=== PATIENT | female | born 1975 | race Hispanic/Latino ===

== ENCOUNTER 2019-06-05 21:24 | Emergency (ER) | payer SELFPAY ==
[2019-06-05 22:13] LABS: Hematocrit 28.6 % (36.0-45.0); Lymphocytes % 39.2 % (15.3-44.8); MPV 8.9 fL (7.6-11.3); Monocytes % 13.3 % (3.3-12.3); RBC Red Blood Cell Count 4.33 M/uL (3.86-4.86)
[2019-06-05 22:16] LABS: Protime INR 0.91
[2019-06-05 22:26] LABS: ALT/SGPT 28 U/L (12-78); AST/SGOT 19 U/L (15-37); Albumin 3.6 g/dL (3.4-5.0); Alkaline Phosphatase 97 U/L (45-117); BUN Blood Urea Nitrogen 16 mg/dL (7-18); Bicarbonate 28 mmol/L (21-32); Bilirubin Direct < 0.1 mg/dL (0-0.2); Bilirubin Total 0.2 mg/dL (0.2-1.0); Glucose Level 77 mg/dL (74-106); NT PRO-BNP 23 pg/mL (<125); Potassium 4.2 mmol/L (3.5-5.1); Protein, Total 7.6 g/dL (6.4-8.2); Sodium Level 142 mmol/L (136-145); Troponin (Emerg Dept Use Only) < 0.02 ng/mL (0.0-0.045)
[2019-06-05 23:30] LABS: Blood Morphology Comment NOTED (NOT SEEN); Platelet Estimate ADEQ; Urine White Blood Cell Casts OK
[2019-06-05 23:31] LABS: Anisocytosis 1+; Hypochromasia 2+
--- NOTE | 2019-06-05 23:48 | ER ---
Nurse's Notes [facility] Name: Brenda Stephenson Age: 43 yrs Sex: Female : 1975 Arrival Date: 06/05/2019 Time: 21:25 Bed 5 Private MD: Diagnosis: Presentation: 06/05 21:27 Presenting complaint: Patient states: I have been having pain in my chest when I la1 breathe and move. I bruised my ribs a couple weeks ago. Transition of care: patient was not received from another setting of care. Onset of symptoms was June 05, 2019. Risk Assessment: Do you want to hurt yourself or someone else? Patient reports no desire to harm self or others. Initial Sepsis Screen: Does the patient meet any 2 criteria? No. Patient's initial sepsis screen is negative. Does the patient have a suspected source of infection? No. Patient's initial sepsis screen is negative. Care prior to arrival: None. 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 - Social history:: Smoking status: Patient uses tobacco products, smokes one-half pack cigarettes per day. - Ebola Screening: : No symptoms or risks identified at this time. Screenin:49 Abuse screen: Denies threats or abuse. Denies injuries from another. Nutritional ak1 screening: No deficits noted. Tuberculosis screening: No symptoms or risk factors identified. Fall Risk None identified. Assessment: 21:45 General: Appears in no apparent distress. Behavior is calm, cooperative. Pain: ak1 Complains of pain in anterior aspect of left upper chest and left arm Pain does not radiate. Pain began 2-3 days ago. Neuro: Level of Consciousness is awake, alert, obeys commands, Oriented to person, place, time, situation, Music Journalist are equal bilaterally Moves all extremities. Gait is steady, Speech is normal, Facial symmetry appears normal. Cardiovascular: Reports chest pain, Denies lightheadedness, nausea, shortness of breath, vomiting, Patient's skin is warm and dry. Rhythm is regular. 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 pt stated she has been seen at [facility] for same s/s last week Airway is patent Respiratory effort is even, unlabored, Breath sounds are clear bilaterally. GI: No signs and/or symptoms were reported involving the gastrointestinal system. : No signs and/or symptoms were reported regarding the genitourinary system. EENT: No signs and/or symptoms were reported regarding the EENT system. Derm: No signs and/or symptoms reported regarding the dermatologic system. Musculoskeletal: Reports numbness in left arm numbness to left arm for 3 days. pt stated pain between shoulder blades. pt has been staying upstairs with her boyfriend at stated since she was here she should have the numbness "checked out". 23:45 Reassessment: Patient appears in no apparent distress at this time. pt leaves room, ak1 walking around ER, refusing to stay in ER5 on cardiac monitoring. pt using nurses station phones to call upstairs. pt removed IV. pt found to have eloped, no longer in ER5 with IV on bed. Vital Signs: 21:29 Resp 16; Temp 97.6; Pulse Ox 98% on R/A; Weight 81.65 kg; Height 5 ft. 1 in. (154.94 la1 cm); 21:30 BP 96 / 66; la1 21:52 BP 114 / 42; Pulse 66; Resp 20; Temp 97.6; Pulse Ox 98% on R/A; ak1 21:29 Body Mass Index 34.01 (81.65 kg, 154.94 cm) la1 ED Course: 21:25 Patient arrived in ED. ds1 21:27 Arm band placed on left wrist. la1 21:28 Triage completed. la1 21:30 Hoa Garcia, RN is Primary Nurse. ak1 21:32 Haja Maldonado MD is Attending Physician. pkl 21:44 Initial lab(s) drawn, by dc, sent to lab. EKG done, by ED staff, reviewed by Haja jamison MD. Inserted saline lock: 22 gauge in right antecubital area, using aseptic technique. Blood collected. Patient maintains SpO2 saturation greater than 95% on room air. 21:53 Patient has correct armband on for positive identification. Placed in gown. Bed in low ak1 position. Call light in reach. Side rails up X2. drug room operator on. Pulse ox on. NIBP on. 22:39 XRAY Chest (1 view) In Process Unspecified. EDMS 22:58 Notified ED physician of a critical lab result(s). 532 d- dimer. Administered Medications: No medications were administered Outcome: 23:47 Patient left the ED. ak1 Signatures: Dispatcher [employer] EDMS Soraya Fonseca, RN RN Haja Polanco MD MD pkl Sanford, Demi ds1 Vega Mckeon RN RN la1 Hoa Garcia RN RN ak1
--- NOTE | 2019-06-05 23:49 | EDPHYS ---
Physician Documentation [facility] Name: Brenda Stephenson Age: 43 yrs Sex: Female : 1975 Arrival Date: 06/05/2019 Time: 21:25 Bed 5 Private MD: ED Physician Haja Maldonado HPI: 06/05 21:49 This 43 yrs old Female presents to ER via Ambulatory with complaints of Chest pkl Pain. 21:49 The patient or guardian reports chest pain that is located primarily in the substernal pkl area. Onset: 3 day(s) ago. The pain radiates to the left arm. The chest pain is described as dull. 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 - Social history:: Smoking status: Patient uses tobacco products, smokes one-half pack cigarettes per day. - Ebola Screening: : No symptoms or risks identified at this time. ROS: 21:49 Eyes: Negative for injury, pain, redness, and discharge, ENT: Negative for injury, pkl pain, and discharge, Neck: Negative for injury, pain, and swelling. 21:49 Cardiovascular: Positive for chest pain. 21:49 Respiratory: Negative for cough, shortness of breath. 21:49 Abdomen/GI: Negative for abdominal pain, nausea, vomiting, and diarrhea. 21:49 Back: Negative for acute changes. 21:49 : Negative for urinary symptoms. 21:49 MS/extremity: Negative for acute changes. 21:49 Skin: Negative for rash. 21:49 Neuro: Negative for altered mental status. Exam: 21:49 Head/Face: Normocephalic, atraumatic. Eyes: Pupils equal round and reactive to light, pkl extra-ocular motions intact. Lids and lashes normal. Conjunctiva and sclera are non-icteric and not injected. Cornea within normal limits. Periorbital areas with no swelling, redness, or edema. ENT: Nares patent. No nasal discharge, no septal abnormalities noted. Tympanic membranes are normal and external auditory canals are clear. Oropharynx with no redness, swelling, or masses, exudates, or evidence of obstruction, uvula midline. Mucous membranes moist. Neck: Trachea midline, no thyromegaly or masses palpated, and no cervical lymphadenopathy. Supple, full range of motion without nuchal rigidity, or vertebral point tenderness. No Meningismus. Chest/axilla: Normal chest wall appearance and motion. Nontender with no deformity. No lesions are appreciated. Cardiovascular: Regular rate and rhythm with a normal S1 and S2. No gallops, murmurs, or rubs. Normal PMI, no JVD. No pulse deficits. Respiratory: Lungs have equal breath sounds bilaterally, clear to auscultation and percussion. No rales, rhonchi or wheezes noted. No increased work of breathing, no retractions or nasal flaring. Abdomen/GI: Soft, non-tender, with normal bowel sounds. No distension or tympany. No guarding or rebound. No evidence of tenderness throughout. Back: No spinal tenderness. No costovertebral tenderness. Full range of motion. Skin: Warm, dry with normal turgor. Normal color with no rashes, no lesions, and no evidence of cellulitis. MS/ Extremity: Pulses equal, no cyanosis. Neurovascular intact. Full, normal range of motion. Neuro: Awake and alert, GCS 15, oriented to person, place, time, and situation. Cranial nerves II-XII grossly intact. Motor strength 5/5 in all extremities. Sensory grossly intact. Cerebellar exam normal. Normal gait. Vital Signs: 21:29 Resp 16; Temp 97.6; Pulse Ox 98% on R/A; Weight 81.65 kg; Height 5 ft. 1 in. (154.94 la1 cm); 21:30 BP 96 / 66; la1 21:52 BP 114 / 42; Pulse 66; Resp 20; Temp 97.6; Pulse Ox 98% on R/A; ak1 21:29 Body Mass Index 34.01 (81.65 kg, 154.94 cm) la1 MDM: 21:33 Patient medically screened. pkl 23:50 Data reviewed: vital signs, nurses notes, lab test result(s), EKG, radiologic studies, pkl plain films. 06/05 21:47 Order name: Basic Metabolic Panel pkl 06/05 21:47 Order name: CBC with Diff pkl 06/05 21:47 Order name: LFT's pkl 06/05 21:47 Order name: Magnesium; Complete Time: 23:33 pkl 06/05 21:47 Order name: NT PRO-BNP; Complete Time: 23:33 pkl 06/05 21:47 Order name: PT-INR; Complete Time: 23:33 pkl 06/05 21:47 Order name: Troponin (emerg Dept Use Only); Complete Time: 23:33 pkl 06/05 21:47 Order name: XRAY Chest (1 view) pkl 06/05 21:47 Order name: D-Dimer; Complete Time: 23:33 pkl 06/05 21:48 Order name: Basic Metabolic Panel; Complete Time: 23:33 EDMS 06/05 21:48 Order name: CBC with Automated Diff; Complete Time: 23:33 EDMS 06/05 21:48 Order name: Liver (Hepatic) Function; Complete Time: 23:33 EDMS 06/05 22:16 Order name: CBC Smear Scan; Complete Time: 23:33 EDMS 06/05 21:47 Order name: EKG; Complete Time: 21:49 pkl 06/05 21:47 Order name: Cardiac monitoring; Complete Time: 21:50 pkl 06/05 21:47 Order name: EKG - Nurse/Tech; Complete Time: 21:50 pkl 06/05 21:47 Order name: IV Saline Lock; Complete Time: 21:51 pkl 06/05 21:47 Order name: Labs collected and sent; Complete Time: 21:51 pkl 06/05 21:47 Order name: O2 Per Protocol; Complete Time: 21:51 pkl 06/05 21:47 Order name: O2 Sat Monitoring; Complete Time: 21:51 pkl Administered Medications: No medications were administered Disposition: 06/05/19 23:47 Patient left the facility after being seen by provider. - Patient left due to unknown. Signatures: Dispatcher [employer] Haja Tam MD MD pkl Attema, Lee RN RN la1 Hoa Garcia RN RN ak1
--- NOTE | 2019-06-06 08:29 | RAD REPORT ---
EXAM DESCRIPTION: RAD - Chest Single View - 06/05/2019 10:38 pm CLINICAL HISTORY: Chest pain COMPARISON: October 2015 TECHNIQUE: AP portable chest image was obtained 2214 hours . FINDINGS: Lung volumes are low. No peripheral mass or consolidation. Heart and vasculature are susi l. No measurable pleural effusion and no pneumothorax. No acute bony abnormality seen. No acute aorti c findings suspected. IMPRESSION: Limited shallow inspiration portable chest film showing no acute finding.
--- NOTE | 2019-06-06 08:43 | EKG ---
Test Date: 2019-06-05 Test Time: 21:37:33 Automobile Rental Clerk: AER MEASUREMENT RESULTS: Intervals: Rate: 63 OH: 124 QRSD: 84 QT: 418 QTc: 427 [place]: P: 31 OH: 124 QRS: 69 T: 61 INTERPRETIVE STATEMENTS: Normal sinus rhythm Normal ECG Compared to ECG 03/17/2016 20:45:20 No significant changes Electronically Signed On 06-06-19 08:41:16 CDT by Seven Schilling
== END 2019-06-05 23:47 | disposition left against medical advice (07) ==
LOC: ER 21:24
DX: R07.9 Chest pain, unspecified (principal); F17.210 Nicotine dependence, cigarettes, uncomplicated; Z53.9 Procedure and treatment not carried out, unspecified reason
CPT/HCPCS: 36415; 71045; 80048; 80076; 83735; 83880; 84484; 85025; 85379; 85610; 93005; 99285

== ENCOUNTER 2019-06-09 00:10 | Emergency (ER) | payer SELFPAY ==
--- NOTE | 2019-06-09 04:24 | EDPHYS ---
Physician Documentation [facility] Name: Brenda Stephenson Age: 43 yrs Sex: Female : 1975 Arrival Date: 06/09/2019 Time: 00:13 Bed 24 Private MD: ED Physician Hitesh Mills HPI: 06/09 00:20 This 43 yrs old Female presents to ER via Unassigned with complaints of chest rn pain. 00:20 The patient or guardian reports chest pain that is located primarily in the substernal rn area. Onset: 4 day(s) ago. The pain does not radiate. Associated signs and symptoms: The patient has no apparent associated signs or symptoms, Pertinent negatives: abdominal pain, dizziness, headache, lightheadedness, nausea, near syncope, palpitations, recent travel, shortness of breath, syncope, vomiting. The chest pain is described as aching, sharp. Modifying factors: The symptoms are alleviated by nothing. the symptoms are aggravated by movement, palpation of area, twisting torso. Severity of pain: At its worst the pain was moderate. The patient has experienced similar episodes in the past. Reports seen a few days ago for chest pain, has been constant for atleast 4 days, no fever, + smoker, worse with palpation and movement, no trauma, left AMA prior to CT PE performed last visit due to elevated d-dimer. Still having pain.. 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 - Family history:: not pertinent. - Social history:: Smoking status: Patient uses tobacco products, smokes one-half pack cigarettes per day. - Ebola Screening: : No symptoms or risks identified at this time. - Hospitalizations: : No recent hospitalization is reported. ROS: 00:20 Constitutional: Negative for fever, chills, and weight loss, Eyes: Negative for injury, rn pain, redness, and discharge, Neck: Negative for injury, pain, and swelling, Cardiovascular: Negative for palpitations, and edema, Respiratory: Negative for shortness of breath, cough, wheezing Abdomen/GI: Negative for abdominal pain, nausea, vomiting, diarrhea, and constipation, Back: Negative for injury and pain, MS/Extremity: Negative for injury and deformity, Skin: Negative for injury, rash, and discoloration, Neuro: Negative for headache, weakness, numbness, tingling, and seizure. Exam: 00:20 Constitutional: This is a well developed, well nourished patient who is awake, alert, rn and in no acute distress. Head/Face: Normocephalic, atraumatic. Eyes: Pupils equal round and reactive to light, extra-ocular motions intact. Lids and lashes normal. Conjunctiva and sclera are non-icteric and not injected. Cornea within normal limits. Periorbital areas with no swelling, redness, or edema. ENT: MMM Cardiovascular: Regular rate and rhythm, No pulse deficits. Respiratory: Lungs have equal breath sounds bilaterally, clear to auscultation, No increased work of breathing, no retractions or nasal flaring. Abdomen/GI: soft, non-tender Skin: Warm, dry with normal turgor. Normal color with no rashes, no lesions, and no evidence of cellulitis. MS/ Extremity: Pulses equal, no cyanosis. Neurovascular intact. Full, normal range of motion. Equal circumference. Neuro: Awake and alert, GCS 15, oriented to person, place, time, and situation. Cranial nerves II-XII grossly intact. Motor strength 5/5 in all extremities. Sensory grossly intact. Cerebellar exam normal. Normal gait. Vital Signs: 00:28 BP 90 / 62; Pulse 72; Resp 16; Temp 97.8(O); Pulse Ox 100% on R/A; ae4 01:00 BP 97 / 51; Pulse 73; Resp 16; Pulse Ox 100% on R/A; rv 02:00 BP 102 / 52; Pulse 65; Resp 18; Temp 98(O); Pulse Ox 100% on R/A; rv 02:37 BP 104 / 59; Pulse 66; Resp 16; Temp 98; Pulse Ox 99% on R/A; rv MDM: 00:16 Patient medically screened. rn 02:37 Differential diagnosis: acute pericarditis, anxiety, coronary artery disease chest wall rn pain, congestive heart failure costochondritis, pleurisy, pneumothorax. Data reviewed: vital signs, nurses notes, lab test result(s), EKG, radiologic studies. Counseling: I had a detailed discussion with the patient and/or guardian regarding: the historical points, exam findings, and any diagnostic results supporting the discharge/admit diagnosis, the presence of at least one elevated blood pressure reading (>120/80) during this emergency department visit, lab results, radiology results, the need for outpatient follow up, to return to the emergency department if symptoms worsen or persist or if there are any questions or concerns that arise at home. Response to treatment: the patient's symptoms have markedly improved after treatment, the patient's condition has returned to base line, the patient is now symptom free. ED course: No acute findings on cxr or labs/ecg, will dc home. States worse with palpation and movement, recommended smoking cessation and pcp f/u.. 06/09 00:18 Order name: IV Start; Complete Time: 02:15 rn 06/09 00:18 Order name: EKG - Nurse/Tech; Complete Time: 01:13 rn Administered Medications: 01:00 Drug: NS 0.9% 1000 ml Route: IV; Rate: 1000 ml; Site: right hand; rv 02:28 Follow up: IV Status: Completed infusion; IV Intake: 1000ml rv Disposition: 06/09/19 02:39 Discharged to Home. Impression: Chest pain, unspecified. - Condition is Stable. - Discharge Instructions: Nonspecific Chest Pain. - Medication Reconciliation Form, Thank You Letter, Antibiotic Education, Prescription Opioid Use form. - Follow up: Private Physician; When: As needed; Reason: Recheck today's complaints, Re-evaluation by your physician. - Problem is an ongoing problem. - Symptoms have improved. Signatures: Hitesh Mills MD MD rn Vicente, Ronaldo, RN RN Corby Howard RN RN ae4 Corrections: (The following items were deleted from the chart) 02:40 02:37 ED course: Spoke at length with patient, possible chest pain equivalent vs heart rn failure vs valvular problem, recommendd admission for echo and stress, patient declines, has appt today with pcp at 3 pm, and understands he needs further testing. Filled up 2 urinals here after lasix, told him to get back on his 2nd BP med, and needs outpt stress/echo. . rn 02:40 02:39 06/09/2019 02:39 Discharged to Home. Impression: Dyspnea, unspecified; Edema, rn unspecified. Condition is Stable. Forms are Medication Reconciliation Form, Thank You Letter, Antibiotic Education, Prescription Opioid Use. Follow up: Private Physician; When: As needed; Reason: Recheck today's complaints, Re-evaluation by your physician. Problem is an ongoing problem. Symptoms have improved. rn 03:04 02:40 06/09/2019 02:39 Discharged to Home. Impression: Chest pain, unspecified. rv Condition is Stable. Discharge Instructions: Edema, Shortness of Breath, Peripheral Edema. Forms are Medication Reconciliation Form, Thank You Letter, Antibiotic Education, Prescription Opioid Use. Follow up: Private Physician; When: As needed; Reason: Recheck today's complaints, Re-evaluation by your physician. Problem is an ongoing problem. Symptoms have improved. rn
--- NOTE | 2019-06-09 04:25 | ER ---
Nurse's Notes [facility] Name: Brenda Stephenson Age: 43 yrs Sex: Female : 1975 Arrival Date: 06/09/2019 Time: 00:13 Bed 24 Private MD: Diagnosis: Chest pain, unspecified Presentation: 06/09 00:29 Presenting complaint: EMS states: EMS states patient has "crushing chest pain", pain ae4 increases upon palpation and movement. Transition of care: patient was not received from another setting of care. Onset of symptoms was June 09, 2019. Risk Assessment: Do you want to hurt yourself or someone else? Patient reports no desire to harm self or others. Initial Sepsis Screen: Does the patient meet any 2 criteria? No. Patient's initial sepsis screen is negative. Does the patient have a suspected source of infection? No. Patient's initial sepsis screen is negative. Care prior to arrival: Medication(s) given: ASA, x 1, 3254 mg. IV initiated. 20 GA, in the left antecubital area, Glucose check: 105. 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 - Family history:: not pertinent. - Social history:: Smoking status: Patient uses tobacco products, smokes one-half pack cigarettes per day. - Ebola Screening: : No symptoms or risks identified at this time. - Hospitalizations: : No recent hospitalization is reported. Screenin:36 Abuse screen: Denies threats or abuse. Nutritional screening: No deficits noted. ae4 Tuberculosis screening: No symptoms or risk factors identified. Fall Risk None identified. No fall in past 12 months (0 pts). No secondary diagnosis (0 pts). IV access (20 points). Ambulatory Aid- None/Bed Rest/Nurse Assist (0 pts). Gait- Normal/Bed Rest/Wheelchair (0 pts) Mental Status- Oriented to own ability (0 pts). Assessment: 01:51 General: Appears in no apparent distress. comfortable, Behavior is calm, cooperative. rv Pain: Complains of pain in chest Pain does not radiate. Pain began suddenly. Neuro: Level of Consciousness is awake, alert, obeys commands, Oriented to person, place, time, situation. Cardiovascular: Patient's skin is warm and dry. Rhythm is regular. Respiratory: Airway is patent. GI: No signs and/or symptoms were reported involving the gastrointestinal system. : No signs and/or symptoms were reported regarding the genitourinary system. EENT: No signs and/or symptoms were reported regarding the EENT system. Derm: Skin is intact. 02:13 Reassessment: Patient appears in no apparent distress at this time. No changes from rv previously documented assessment. Patient and/or family updated on plan of care and expected duration. Pain level reassessed. Patient is alert, oriented x 3, equal unlabored respirations, skin warm/dry/pink. Vital Signs: 00:28 BP 90 / 62; Pulse 72; Resp 16; Temp 97.8(O); Pulse Ox 100% on R/A; ae4 01:00 BP 97 / 51; Pulse 73; Resp 16; Pulse Ox 100% on R/A; rv 02:00 BP 102 / 52; Pulse 65; Resp 18; Temp 98(O); Pulse Ox 100% on R/A; rv 02:37 BP 104 / 59; Pulse 66; Resp 16; Temp 98; Pulse Ox 99% on R/A; rv ED Course: 00:13 Patient arrived in ED. ds1 00:16 Hitesh Mills MD is Attending Physician. rn 00:25 Corby Naranjo RN is Primary Nurse. ae4 00:31 Triage completed. ae4 00:37 Arm band placed on right wrist. ae4 00:37 Maintain EMS IV. Dressing intact. Good blood return noted. Site clean \\T\\ dry. Gauge \\T\\ ae 4 site: 20 Left AC.. Patient maintains SpO2 saturation greater than 95% on room air. 00:48 Placed in gown. Bed in low position. Call light in reach. Side rails up X 1. Adult w/ ae4 patient. study specialist on. Pulse ox on. NIBP on. 02:38 No provider procedures requiring assistance completed. IV discontinued, intact, rv bleeding controlled, No redness/swelling at site. Pressure dressing applied. Administered Medications: 01:00 Drug: NS 0.9% 1000 ml Route: IV; Rate: 1000 ml; Site: right hand; rv 02:28 Follow up: IV Status: Completed infusion; IV Intake: 1000ml rv Intake: 02:28 IV: 1000ml; Total: 1000ml. rv Outcome: 02:38 Discharged to home ambulatory. rv 02:38 Condition: good 02:38 Discharge instructions given to patient, family, Instructed on discharge instructions, follow up and referral plans. Demonstrated understanding of instructions, follow-up care. 02:39 Discharge ordered by . rn 03:04 Patient left the ED. rv Signatures: Marilyn Swenson ds1 Hitesh Mills MD MD rn Vicente, Ronaldo, RN RN rv Corby Naranjo RN RN ae4
[2019-06-09 04:51] LABS: BUN Blood Urea Nitrogen 23 mg/dL (7-18); Bicarbonate 29 mmol/L (21-32); Glucose Level 75 mg/dL (74-106); Potassium 3.9 mmol/L (3.5-5.1); Sodium Level 142 mmol/L (136-145); Troponin (Emerg Dept Use Only) < 0.02 ng/mL (0.0-0.045)
[2019-06-09 04:52] LABS: Basophils % 1.5 % (0-1.3); Eosinophils % 2.6 % (0-4.4); Hematocrit 27.3 % (36.0-45.0); Lymphocytes % 33.5 % (15.3-44.8); MPV 9.2 fL (7.6-11.3); Monocytes % 12.3 % (3.3-12.3)
[2019-06-09 04:53] LABS: Anisocytosis 1+; Blood Morphology Comment NOTED (NOT SEEN); Hypochromasia 1+; Platelet Estimate ADEQ; Urine White Blood Cell Casts OK
--- NOTE | 2019-06-09 08:18 | RAD REPORT ---
EXAM DESCRIPTION: RAD - Chest Single View - 06/09/2019 4:13 am CLINICAL HISTORY: CHEST PAIN Chest pain. COMPARISON: Chest Single View dated 06/05/2019; CHEST PA AND LAT 2 VIEW dated 10/20/2015; CHEST PA AND LAT 2 VIEW dated 08/24/2015; CHEST PA AND LAT 2 VIEW dated 05/30/2013; Chest For Pe Angio dated 019 FINDINGS: Portable technique limits examination quality. The lungs are grossly clear. The heart is upper limit of normal in size. No displaced fractures. IMPRESSION: No acute intrathoracic process suspected.
--- NOTE | 2019-06-09 09:55 | EKG ---
Test Date: 2019-06-09 Test Time: 00:48:42 Relationship Assoc: VICKEYT MEASUREMENT RESULTS: Intervals: Rate: 71 PA: 136 QRSD: 92 QT: 408 QTc: 443 [place]: P: 54 PA: 136 QRS: 54 T: 47 INTERPRETIVE STATEMENTS: Normal sinus rhythm Normal ECG Compared to ECG 06/05/2019 21:37:33 No significant changes Electronically Signed On 06-09-19 09:54:20 CDT by Jasmeet Gutierrez
--- NOTE | 2019-06-09 10:55 | RAD REPORT ---
EXAM DESCRIPTION: CTA Chest With Intravenous Contrast CLINICAL HISTORY: The patient is 43 years old and is Female; chest pain, rule out PE TECHNIQUE: Axial computed tomography images of the chest with intravenous contrast during the arteri al phase of enhancement. Sagittal and coronal reformatted images were created and reviewed. This CT exam was performed using one or more of the following dose reduction techniques: automated expos ure control, adjustment of the mA and/or kV according to patient size, and/or use of iterative recons truction technique. Oblique reformatted images were created and reviewed. COMPARISON: Chest radiograph of the same day. FINDINGS: PULMONARY ARTERIES: Unremarkable. No pulmonary embolism. AORTA: No acute findings. No thoracic aortic aneurysm. LUNGS: Dependent subsegmental atelectasis. Atelectasis in the lingula. No focal consolidation, ple ural effusion or pneumothorax. PLEURAL SPACE: See above. HEART: The heart is normal in size. No significant pericardial effusion. No evidence of RV dysfunction. THYROID: Visualized thyroid is within normal limits. BONES/JOINTS: Straightening of thoracic kyphosis. No acute fracture. No dislocation. SOFT TISSUES: Unremarkable. LYMPH NODES: Nonspecific nonenlarged mediastinal lymph nodes. IMPRESSION: 1. No pulmonary embolism. 2. No acute intrathoracic abnormality. Electronically signed by: Jose G Zacarias DO 06/09/2019 2:38 AM CDT Due to temporary technical issues with the PACS/Fluency reporting system, reports are being signed by the in house radiologist as a courtesy to ensure prompt reporting. The interpreting radiologist is f ully responsible for the content of the report.
== END 2019-06-09 03:04 | disposition home or self-care (01) ==
LOC: ER 00:10
DX: R07.9 Chest pain, unspecified (principal); F17.210 Nicotine dependence, cigarettes, uncomplicated
CPT/HCPCS: 36415; 71045; 71275; 80048; 84484; 85025; 93005; 96360; 99285; Q9967

== ENCOUNTER 2019-07-09 19:43 | Emergency (ER) | payer SELFPAY ==
[2019-07-09 20:43] LABS: Absolute Lymphocytes (CBC) 1.6 K/uL (0.7-4.9); Basophils % 0.8 % (0-1.3); Hematocrit 28.1 % (36.0-45.0); Lymphocytes % 27.7 % (15.3-44.8); MPV 9.1 fL (7.6-11.3); RBC Red Blood Cell Count 4.28 M/uL (3.86-4.86)
[2019-07-09] MEDS ORDERED: IBUPROFEN 400 MG TAB ONE (20:52)
[2019-07-09 21:18] LABS: BUN Blood Urea Nitrogen 13 mg/dL (7-18); Bicarbonate 26 mmol/L (21-32); Glucose Level 92 mg/dL (74-106); Sodium Level 142 mmol/L (136-145); Troponin (Emerg Dept Use Only) < 0.02 ng/mL (0.0-0.045)
--- NOTE | 2019-07-09 21:25 | ER ---
Nurse's Notes [facility] Name: Brenda Stephenson Age: 43 yrs Sex: Female : 1975 Arrival Date: 07/09/2019 Time: 19:45 Bed 5 Private MD: Diagnosis: Chest pain, unspecified;Panic disorder [episodic paroxysmal anxiety] without agoraphobia Presentation: 07/09 19:47 Presenting complaint: EMS states: pt was at [facility] when she became short of ak1 breath with chest pain to right chest wall. pt stated she has had same s/s for over a month and been seen at [facility] and [facility] "many times" pt resp even and unlabored at this time. EMS reported normal sinus rhythm on 12 lead in route. pt stated pain was relieved with 324 aspirin given in route. Officer at bedside, pt refusing lab work or further testing, Dr. Maldonado notified. Transition of care: patient was not received from another setting of care. Onset of symptoms is unknown. Risk Assessment: Do you want to hurt yourself or someone else? Patient reports no desire to harm self or others. Initial Sepsis Screen: Does the patient meet any 2 criteria? No. Patient's initial sepsis screen is negative. Does the patient have a suspected source of infection? No. Patient's initial sepsis screen is negative. Care prior to arrival: None. 19:47 Method Of Arrival: EMS: [facility] ak1 19:47 Acuity: JASON 3 ak1 Triage Assessment: 19:51 General: Appears in no apparent distress. Behavior is calm, cooperative, appropriate ak1 for age. Pain: Denies pain. EENT: No signs and/or symptoms were reported regarding the EENT system. Neuro: Level of Consciousness is awake, alert, obeys commands, Oriented to person, place, time, situation, Associate Software Development Engineer are equal bilaterally Moves all extremities. Gait is steady, Speech is normal, Facial symmetry appears normal. Cardiovascular: Denies chest pain, Heart tones S1 S2 Capillary refill < 3 seconds Patient's skin is warm and dry. Cardiovascular: Parent/caregiver reports patient has had EMS reported pt had right side chest pain while in usp cell at [facility]. EMS stated pt chest pain resolved after 324mg aspirin given DIRECTOR OF EVENT SALES. Respiratory: Reports shortness of breath at rest since "over a month" Airway is patent Trachea midline Respiratory effort is even, unlabored, Respiratory pattern is regular, symmetrical, Breath sounds are clear bilaterally. Onset: The symptoms/episode began/occurred at an unknown time. the patient has mild shortness of breath. GI: No signs and/or symptoms were reported involving the gastrointestinal system. : No signs and/or symptoms were reported regarding the genitourinary system. Derm: No signs and/or symptoms reported regarding the dermatologic system. Musculoskeletal: No signs and/or symptoms reported regarding the musculoskeletal system. Historical: - Allergies: 19:51 No Known Allergies; ak1 - Home Meds: 19:51 None [Active]; ak1 - PMHx: 19:51 Anemia; Kidney stones; ak1 - PSHx: 19:51 None; ak1 - Immunization history:: Adult Immunizations unknown. - Social history:: Smoking status: unknown. - Ebola Screening: : No symptoms or risks identified at this time. Screenin:53 Abuse screen: Denies threats or abuse. Denies injuries from another. Nutritional ak1 screening: No deficits noted. Tuberculosis screening: No symptoms or risk factors identified. Fall Risk None identified. Assessment: 19:53 Reassessment: Patient appears in no apparent distress at this time. No changes from ak1 previously documented assessment. Patient and/or family updated on plan of care and expected duration. Pain level reassessed. pt removed all monitoring equipment. pt refusing any further care at this time, Dr. Maldonado notified. 20:15 Reassessment: pt refused EKG, ERP notified. pt stated she would allow a lab draw, [facility] phlebotomy paged. 20:34 Reassessment: pt allowed phlebotomy to draw labs. pt and officer informed of wait for ak1 lab results. 21:35 Reassessment: Patient appears in no apparent distress at this time. No changes from ak1 previously documented assessment. Patient and/or family updated on plan of care and expected duration. Pain level reassessed. Patient is alert, oriented x 3, equal unlabored respirations, skin warm/dry/pink. Patient denies pain at this time. Patient states feeling better. Officer waiting for patrol car for transportation. . 21:36 Cardiovascular: Rhythm is regular. ak1 Vital Signs: 19:51 BP 195 / 169; Pulse 75; Resp 18; Temp 97.6(TE); Pulse Ox 97% on R/A; Weight 90.72 kg ak1 (R); Height 5 ft. 1 in. (154.94 cm) (R); Pain 0/10; 20:58 BP 119 / 69; jd3 19:51 Body Mass Index 37.79 (90.72 kg, 154.94 cm) ak1 ED Course: 19:45 Patient arrived in ED. bb 19:47 Hoa Garcia RN is Primary Nurse. ak1 19:50 Fredy Hensley PA is PHCP. jr8 19:50 Haaj Maldonado MD is Attending Physician. jr8 19:50 Triage completed. ak1 19:51 Arm band placed on Patient placed in an exam room, on a stretcher, on telephone interviewer, ak1 on pulse oximetry, Patient notified of wait time. 19:53 Patient has correct armband on for positive identification. Bed in low position. Call ak1 light in reach. Side rails up X2. [place] officer at bedside. 21:35 No provider procedures requiring assistance completed. Patient did not have IV access ak1 during this emergency room visit. Administered Medications: 20:58 Drug: Ibuprofen 800 mg Route: PO; jd3 21:12 Follow up: Response: No adverse reaction; Pain is decreased ak1 21:34 Drug: Potassium Chloride 40 mEq Route: PO; ak1 21:34 Follow up: Response: No adverse reaction ak1 Outcome: 21:24 Discharge ordered by . jr8 21:36 Discharged to Law Enforcement ak1 21:36 Condition: stable 21:36 Discharge instructions given to patient, Instructed on discharge instructions, follow up and referral plans. Demonstrated understanding of instructions, follow-up care. 21:46 Patient left the ED. ak1 Signatures: Cande Villalba RN RN bb Fredy Hensley PA PA jr8 Hoa Garcia RN RN ak1 Hunter Marrero RN RN jd3
--- NOTE | 2019-07-09 21:25 | EDPHYS ---
Physician Documentation [facility] Name: Brenda Stephenson Age: 43 yrs Sex: Female : 1975 Arrival Date: 07/09/2019 Time: 19:45 Bed 5 Private MD: ED Physician Haja Maldonado HPI: 07/09 20:21 This 43 yrs old Female presents to ER via EMS with complaints of Shortness Of jr8 Breath. 20:21 The patient has shortness of breath at rest. Onset: The symptoms/episode began/occurred jr8 acutely, today. Duration: The symptoms are continuous, but are markedly better than the original presentation. The patient's shortness of breath has no apparent modifying factors. Associated signs and symptoms: Pertinent positives: chest pain. Severity of symptoms: At their worst the symptoms were moderate in the emergency department the symptoms have resolved. The patient has experienced similar episodes in the past, a few times. The patient has not recently seen a physician. Patient currently in custody of police. Started to have chest pain and shortness of breath at assisted. By the time patient arrived to ED symptoms had resolved. Patient stated that she thinks she just had a bad panic attack. By request of police. Would like us to medically clear her . Historical: - Allergies: 19:51 No Known Allergies; ak1 - Home Meds: 19:51 None [Active]; ak1 - PMHx: 19:51 Anemia; Kidney stones; ak1 - PSHx: 19:51 None; ak1 - Immunization history:: Adult Immunizations unknown. - Social history:: Smoking status: unknown. - Ebola Screening: : No symptoms or risks identified at this time. ROS: 20:21 Eyes: Negative for injury, pain, redness, and discharge, ENT: Negative for injury, jr8 pain, and discharge, Neck: Negative for injury, pain, and swelling, Abdomen/GI: Negative for abdominal pain, nausea, vomiting, diarrhea, and constipation, Back: Negative for injury and pain, MS/Extremity: Negative for injury and deformity, Skin: Negative for injury, rash, and discoloration, Neuro: Negative for headache, weakness, numbness, tingling, and seizure. 20:21 Cardiovascular: Positive for chest pain, Negative for edema, orthopnea, palpitations, paroxysmal nocturnal dyspnea. 20:21 Respiratory: Positive for shortness of breath. Exam: 20:21 Eyes: Pupils equal round and reactive to light, extra-ocular motions intact. Lids and jr8 lashes normal. Conjunctiva and sclera are non-icteric and not injected. Cornea within normal limits. Periorbital areas with no swelling, redness, or edema. ENT: Nares patent. No nasal discharge, no septal abnormalities noted. Tympanic membranes are normal and external auditory canals are clear. Oropharynx with no redness, swelling, or masses, exudates, or evidence of obstruction, uvula midline. Mucous membranes moist. Neck: Trachea midline, no thyromegaly or masses palpated, and no cervical lymphadenopathy. Supple, full range of motion without nuchal rigidity, or vertebral point tenderness. No Meningismus. Cardiovascular: Regular rate and rhythm with a normal S1 and S2. No gallops, murmurs, or rubs. Normal PMI, no JVD. No pulse deficits. Respiratory: Lungs have equal breath sounds bilaterally, clear to auscultation and percussion. No rales, rhonchi or wheezes noted. No increased work of breathing, no retractions or nasal flaring. Abdomen/GI: Soft, non-tender, with normal bowel sounds. No distension or tympany. No guarding or rebound. No evidence of tenderness throughout. Back: No spinal tenderness. No costovertebral tenderness. Full range of motion. Skin: Warm, dry with normal turgor. Normal color with no rashes, no lesions, and no evidence of cellulitis. MS/ Extremity: Pulses equal, no cyanosis. Neurovascular intact. Full, normal range of motion. Neuro: Awake and alert, GCS 15, oriented to person, place, time, and situation. Cranial nerves II-XII grossly intact. Motor strength 5/5 in all extremities. Sensory grossly intact. Cerebellar exam normal. Normal gait. Vital Signs: 19:51 BP 195 / 169; Pulse 75; Resp 18; Temp 97.6(TE); Pulse Ox 97% on R/A; Weight 90.72 kg ak1 (R); Height 5 ft. 1 in. (154.94 cm) (R); Pain 0/10; 20:58 BP 119 / 69; jd3 19:51 Body Mass Index 37.79 (90.72 kg, 154.94 cm) ak1 MDM: 19:50 Patient medically screened. jr8 20:21 Data reviewed: vital signs, nurses notes, lab test result(s). Data interpreted: Pulse jr8 oximetry: on room air is 97 %. Interpretation: normal. Counseling: I had a detailed discussion with the patient and/or guardian regarding: the historical points, exam findings, and any diagnostic results supporting the discharge/admit diagnosis, lab results, the need for outpatient follow up, a family practitioner, to return to the emergency department if symptoms worsen or persist or if there are any questions or concerns that arise at home. ED course: Patient initially would not allow us to exam her. Finally was able to talk her into us looking at her to insure she is not having cardiac event. Patient allowed us to do blood work but currently refusing EKG. 07/09 20:07 Order name: CBC with Diff; Complete Time: 21:36 8 07/09 20:07 Order name: Basic Metabolic Panel; Complete Time: 21:23 [facility] 07/09 20:07 Order name: Troponin (emerg Dept Use Only); Complete Time: 21:23 [facility] 07/09 21:30 Order name: CBC Smear Scan; Complete Time: 21:36 EDMS Administered Medications: 20:58 Drug: Ibuprofen 800 mg Route: PO; jd3 21:12 Follow up: Response: No adverse reaction; Pain is decreased ak1 21:34 Drug: Potassium Chloride 40 mEq Route: PO; ak1 21:34 Follow up: Response: No adverse reaction ak1 Disposition: 07/10 01:10 Co-signature as Attending Physician, Haja Maldonado MD. joel Disposition: 07/09/19 21:24 Discharged to Home. Impression: Chest pain, unspecified, Panic disorder [episodic paroxysmal anxiety] without agoraphobia. - Condition is Stable. - Discharge Instructions: Panic Attacks, Nonspecific Chest Pain. - Medication Reconciliation Form, Thank You Letter, Antibiotic Education, Prescription Opioid Use form. - Follow up: Private Physician; When: 2 - 3 days; Reason: Recheck today's complaints, Continuance of care, Re-evaluation by your physician. - Problem is new. - Symptoms have improved. Signatures: Dispatcher [employer] EDMS Haja Maldonado MD MD pkFredy Liz PA PA jr8 Hoa Garcia RN RN ak1 Hunter Marrero RN RN jd3 Corrections: (The following items were deleted from the chart) 07/09 20:16 20:08 EKG - Nurse/Tech ordered. jr8 ak1 21:29 20:46 Manual Differential ordered. EDMS EDMS 21:46 21:24 07/09/2019 21:24 Discharged to Home. Impression: Chest pain, unspecified; Panic ak1 disorder [episodic paroxysmal anxiety] without agoraphobia. Condition is Stable. Forms are Medication Reconciliation Form, Thank You Letter, Antibiotic Education, Prescription Opioid Use. Follow up: Private Physician; When: 2 - 3 days; Reason: Recheck today's complaints, Continuance of care, Re-evaluation by your physician. Problem is new. Symptoms have improved. jr8
[2019-07-09 21:27] LABS: Blood Morphology Comment NOTED (NOT SEEN); Hypochromasia 1+; Platelet Estimate ADEQ; Urine White Blood Cell Casts OK
[2019-07-09] MEDS ORDERED: POTASSIUM CL SA 10 MEQ TAB PO ONE (21:34)
== END 2019-07-09 21:46 | disposition home or self-care (01) ==
LOC: ER 19:43
DX: F41.0 Panic disorder [episodic paroxysmal anxiety] (principal); Z87.442 Personal history of urinary calculi
CPT/HCPCS: 36415; 80048; 84484; 85025; 99283